=== PATIENT | male | born 1945 | race Caucasian/White ===

== ENCOUNTER 2016-08-10 15:23 | Observation (INO) | payer MEDICARE, BC ==
[~2016-08-10] VITALS: Ht 177.8 cm; Wt 84.0 kg
--- NOTE | ~2016-08-10 | ECHO ---
Transthoracic Echocardiography Report (TTE) Demographics Patient Name JASS HERMAN Date of Study 08/11/2016 Patient Number [id number] Visit Number [id number] Date of 1945 Room Number G6315 Gender Male Number Age 71 year(s) Referring Nitish Donahue [employer] [facility] Manager Yumiko Reeder, Physician RT,RVT,RDCS Physician Interpreting Tone Ojeda A Suppository Molding Machine Operator Physician MD Supervising Ordering Nitish Donahue BANDAGE WINDING MACHINE OPERATOR MD/MLP Physician Nurse Stress Legal Counsel Conclusions Contractility Score Summary Summary The estimated left ventricular ejection fraction is 50-55%. Mild concentric left ventricular hypertrophy. Mild anterior hypokinesis. Diastolic assessment reveals Grade II pseudonormal diastolic function. . Mildly dilated right ventricle. Mild to moderately reduced right ventricular function. Mild mitral regurgitation by color Doppler. Mild tricuspid regurgitation by color Doppler. Procedure Type of Study TTE procedure:2D Echocardiogram, M-Mode, Doppler , Color Doppler. Procedure Date Date: 08/11/2016 Start: 08:59 AM Study Location: Inpatient Portable Technical Quality: Good visualization Indications:Syncope. Appropriate Use Criteria: 9 Patient Status: Routine HR: 54 bpm BP: 125/75 mmHg Allergies - Other. - Other:(Indocin). M-Mode/2D Measurements LV Diastolic Dimension: 5.12 cm LV Systolic Dimension: 2.38 cm LV Septum Diastolic: 0.89 cm LV Septum Systolic: 1.13 cm LV PW Diastolic: 1.09 cm LV PW Systolic: 1.94 cm Cardiac Output: 4.23 l/min AO Root Dimension: 3.8 cm RV Diastolic Dimension: 3.33 cm LA Dimension: 3.7 cm EF Estimated: 60 % LA volume: 44 ml LVOT: 2.2 cm LVOT VTI: 20.6 cm LV Stroke volume: 78.27 ml Doppler Measurements AV Peak Velocity: 1.38 m/s MV Peak E-Wave: 0.86 m/s AV Peak Gradient: 7.62 mmHg MV Peak A-Wave: 0.74 m/s AV Mean Gradient: 4 mmHg MV E/A Ratio: 1.17 LVOT Peak Velocity: 0.9 m/s MV P1/2t: 57 msec TR Gradient:7.4 mmHg Estimated RAP:10 mmHg Estimated PASP: 17.4 mmHg Estimated RVSP: 17 mmHg A' Septal Velocity: 0.09 m/s E' Septal Velocity: 0.08 m/s MV E/E' Ratio: 10.9 Findings Left Ventricle Mild concentric left ventricular hypertrophy. Mild anterior hypokinesis. Diastolic assessment reveals Grade II pseudonormal diastolic function. . Right Ventricle Mildly dilated right ventricle. Mild to moderately reduced right ventricular function. Left Atrium Normal left atrial size. Right Atrium Upper normal right atrial size. Mitral Valve Mild mitral regurgitation by color Doppler. Aortic Valve Normal aortic valve structure and function. Tricuspid Valve Mild tricuspid regurgitation by color Doppler. Pericardial Effusion No evidence of pericardial effusion. Miscellaneous Visualized portions of the aortic root and ascending aorta appear normal in size. IVC is mildly dilated. Blunted response to sniffing. Pleural Effusion No evidence of pleural effusion. Signature dtt: aJiden Wayne dtd: 08/11/16 0859 Physician Self Edit
--- NOTE | ~2016-08-10 | HP ---
PATIENT'S NAME: SHELTON FROST [facility] AGE: 71 Y [address] ROOM: G6315 [place], [place] [address] LOCATION: GPCU ADMIT DATE: 08/10/2016 History & Physical DISCHARGE DATE: FAMILY PHYSICIAN: JEAN BROWN MD ATTENDING PHYSICIAN: JEAN BROWN DATE OF SERVICE: CHIEF COMPLAINT: Dizzy spell. 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 He went to the house, took 1 sublingual nitroglycerin, not so much that he had pain, but thought maybe it was a heart issue, did not feel well and was brought into the hospital for evaluation. He was seen here by Mahi Lizarraga, ER physician, and I was called because I am the patient's primary care physician. Here, a CT of the head per Dr. Lizarraga was negative. Chest x- ray is negative. When I review, his CBC and chem panel look fine. His magnesium slightly low at 1.2. His potassium slightly low at 3.5. Cardiac enzymes are negative. He has developed no chest pain here in the emergency room. When I see him, he is resting quietly in bed, said he feels fine. He is not complaining of slurred speech, visual changes, or weakness in his arms or legs. He does not complain of reflux, nausea, vomiting, or diarrhea. 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 He does have cardiac risk factors as previously known coronary artery disease, hypertension, he is not diabetic, does not smoke. Family history of coronary disease noted positive. At this point, the goal is to admit him to the hospital overnight. I have consulted Dr. Almendarez, spare person at [facility] to see him. Adjust his med list. We will put him in the hospital bed rest on telemetry, get repeat cardiac enzymes at 8 o'clock, get a Cardiology consult, add a potassium supplement and magnesium supplement,and re-evaluate in the morning. We will resume his prior home medications which I reviewed and wrote down in the chart. CURRENT MEDICATIONS: 1. Flovent 220 two puffs b.i.d. 2. Protonix 40 mg a day. 3. Nadolol 10 mg daily. 4. Lisinopril 2.5 mg a day. 5. Alfuzosin 10 mg q.h.s. PATIENT'S NAME: SHELTON FROST [facility] AGE: 71 Y [address] ROOM: [place] [address] LOCATION: GPCU ADMIT DATE: 08/10/2016 History & Physical DISCHARGE DATE: FAMILY PHYSICIAN: JEAN BROWN MD ATTENDING PHYSICIAN: JEAN BROWN 6. Atorvastatin 40 mg a day. 7. Multivitamin. 8. Vitamin E. 9. Calcium with vitamin D daily. 10. Aspirin 81 mg a day. ALLERGIES TO MEDICATIONS: See nurse's notes. PREVIOUS OPERATIONS: See old records. SOCIAL HISTORY: Does not smoke. FAMILY HISTORY: As mentioned, otherwise noncontributory. IMMUNIZATIONS: Up-to-date for age. REVIEW OF SYSTEMS: Positive for asthma, coronary artery disease, hypertension, chronic GERD, and BPH. PHYSICAL EXAMINATION: VITAL SIGNS: Per nurse's notes. GENERAL: He is alert male, lying in the cart, in no apparent distress. Oriented to person, place, and time. HEENT: He wears glasses. Pupils react to light. Funduscopic exam, not done. TMs not visualized. Posterior pharynx clear. Mucous membranes are moist. NECK: Unremarkable. Thyroid enlarged. I did not listen for bruits. LUNGS: Clear without wheeze or rub. HEART: No murmur, gallop, or rub. ABDOMEN: Soft without point tenderness. PELVIC: Not done. RECTAL: Not done. EXTREMITIES: No edema. Pulses full throughout. NEURO: Cranial nerves are intact. No lateralizing signs. Mental status normal for age. IMPRESSION: 1. Dizzy spell, etiology undetermined. 2. Known history of coronary artery disease. 3. Hypertension, essential. PATIENT'S NAME: SHELTON FROST [facility] AGE: 71 Y [address] ROOM: [place] [address] LOCATION: GPCU ADMIT DATE: 08/10/2016 History & Physical DISCHARGE DATE: FAMILY PHYSICIAN: JEAN BROWN MD ATTENDING PHYSICIAN: JEAN BROWN 4. Asthma. 5. Chronic gastroesophageal reflux disease. 6. Hyperlipidemia. 7. Benign prostatic hypertrophy. PLAN: Observation tonight. Cardiology consult. Replace potassium and magnesium and see how we do. MD CASSY VÁZQUEZ/modl /[id number] D: [id number] T: [id number] HISTORY & PHYSICAL
--- NOTE | ~2016-08-10 | DS ---
PATIENT'S NAME: JASS HERMAN [facility] AGE: 71 Y [address] ROOM: [address] [address] LOCATION: GPCU ADMIT DATE: 08/10/2016 Discharge Summary DISCHARGE DATE: 08/11/2016 FAMILY PHYSICIAN: Jean Brown MD ATTENDING PHYSICIAN: Jean Brown FINAL DIAGNOSES: 1. Chest pain, noncardiac. 2. Gastroesophageal reflux, chronic. 3. Asthma. 4. Hypertension, essential. 5. Known coronary artery disease. PRIMARY DIAGNOSIS: Dizziness. HOSPITAL COURSE: This patient was admitted to the hospital for the above. Primary symptoms were dizziness. He was seen in the emergency room and evaluated there. His evaluation there showed a normal CT of the head, essentially normal labs, no evolutionary changes of CT were noted, and no EKGs changes evolved. He was seen in consultation by the [facility] Cardiology team. Please see their notes and dictations on the chart. The patient's echocardiogram done prior to dismissal revealed no evidence of ischemia and a normal ejection fraction. After admission, the patient had no further spells of dizziness and developed no chest pain. He was dismissed home on 08/11/2016 in the evening. He goes out with my recommendations to see me back in the office in a week, double his PPI Protonix to twice a day, and continue his other home medications. He is dismissed on the med list shown. He should have a 2 g salt diet, I suspect. He is to see me back earlier if he has another spell of dizziness, lightheadedness, or chest pain, he understands. JEAN BROWN MD STOCK PITCHER/modl /[id number] d: 08/12/16 0125 t: 08/14/16 1444, DISCHARGE SUMMARY
--- NOTE | ~2016-08-10 | ER ---
PATIENT'S NAME: JASS HERMAN [facility] AGE: 71 Y [address] ROOM: [place] [address] LOCATION: GPCU ADMIT DATE: 08/10/2016 ER/Outpatient Report DISCHARGE DATE: FAMILY PHYSICIAN: JEAN COLUNGA MD ATTENDING PHYSICIAN: JEAN COLUNGA Time of Arrival: 1523 hours. Time Seen: 1544 hours. IDENTIFICATION: A 71-year-old male. CHIEF COMPLAINT: Lightheadedness. HISTORY OF PRESENT ILLNESS: The patient was out closing a gate when he felt sweaty, had some spots in his vision, felt lightheaded, had to hang on to the gate, as he felt he was going to pass out. It was not a spinning sensation. He had a little bit of chest discomfort during that time and some shortness of breath. He went into the house, took a sublingual nitroglycerin, and his symptoms improved. His said that he was very pale during that time. The patient does have a history of coronary artery disease with previous CABG and stents. Last stents were in [address] 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 ALLERGIES: INDOCIN, HE IS NOT CERTAIN WHAT HAPPENS WITH THAT. CURRENT MEDICATIONS: 1. Flovent 220 mcg 2 puffs b.i.d. 2. Pantoprazole 40 mg daily. 3. Nadolol 10 mg q.a.m. 4. Lisinopril 2.5 mg q.a.m. 5. Alfuzosin 10 mg at h.s. 6. Atorvastatin 40 mg at h.s. 7. Multivitamin daily. 8. Vitamin E. 9. Calcium plus vitamin D. 10. Aspirin 81 mg daily. MEDICAL PROBLEMS: Coronary artery disease, status post previous CABG in 2010, stents in 2012, hyperlipidemia, gastroesophageal reflux disease, hypertension, headaches, and asthma. [facility]GE[facility] 71 Y [address] ROOM: [place] [address] LOCATION: GPCU ADMIT DATE: 08/10/2016 ER/Outpatient Report DISCHARGE DATE: FAMILY PHYSICIAN: JEAN COLUNGA MD ATTENDING PHYSICIAN: JEAN COLUNGA PRIOR SURGERIES: CABG and cardiac stents. FAMILY HISTORY: No family history of premature coronary artery disease. SOCIAL HISTORY: The patient is . Lives with his in [place]. Tobacco use, denies. Alcohol use, denies. Drug use, denies. REVIEW OF SYSTEMS: All systems reviewed and negative other than what is noted in the HPI. PHYSICAL EXAMINATION: VITAL SIGNS: Weight 84 kg, blood pressure 131/62, pulse 81, respirations 20, temperature 97.1, and saturations are 94% on room air. GENERAL: A 71-year-old male who is completely asymptomatic at this time in no acute distress. HEENT: Head: Normocephalic, atraumatic. Ears: TMs are translucent both ears. Eyes: Pupils are equal and reactive to light and accommodation. Extraocular movements intact. Nose: Mucosa pink. No lesions. Mouth: No lesions. Pharynx benign. NECK: Supple. No lymphadenopathy. LUNGS: Clear to auscultation. HEART: Regular rate and rhythm. No murmur, rub, or gallop. ABDOMEN: Bowel sounds are present. Soft, nondistended. No hepatosplenomegaly, no palpable masses, or nontender. SKIN: [place], warm, and dry. No lesions or rashes noted. NEURO: The patient is alert and oriented x4. Cranial nerves 2 through 12 grossly intact. Motor strength 5/5 throughout. Sensation was intact to light touch. EXTREMITIES: No lower extremity edema, no calf tenderness. LABORATORY DATA: Chest x-ray, no acute process, pending Radiology over-read. Head CT negative per Radiology. EKG: Normal sinus rhythm at 63 beats per minute, first-degree AV block. No acute ST elevation or depression. Incomplete right bundle- branch block. Sodium 143, potassium 3.5, chloride 109, CO2 24, BUN 14, creatinine 0.8, blood sugar 125, magnesium level 1.2. Liver enzymes are normal. CPK 92, CK-MB 1.6. Troponin I less than 0.040. ProBNP 88, hemoglobin 14.2, hematocrit 40.9, platelets 183, white count 7.9. Normal differential. INR 0.99. IMPRESSION: 1. Near syncope. PATIENT'S NAME: JASS HERMAN [facility] AGE: 71 Y [address] ROOM: [place] [address] [facility] AD[facility] DATE: 08/10/2016 ER/Outpatient Report DISCHARGE DATE: FAMILY PHYSICIAN: JEAN COLUNGA MD ATTENDING PHYSICIAN: JEAN COLUNGA 2. Chest discomfort in the patient with known coronary artery disease. 3. Mild hypokalemia. 4. Hypomagnesemia. PLAN: For admission per Dr. Colunga, 24-hour observation for serial EKG and enzymes with Cardiology consultation. The patient and his understand and agree, and all questions have been answered and Dr. Colunga evaluated the patient in the emergency room. RAY BANERJEE MD CAR/modl /[id number] d: 08/11/16 0138 t: 08/11/16 0650, OUTPATIENT REPORT
--- NOTE | ~2016-08-10 | ESTC ---
Cardiac Perfusion Imaging Demographics Patient Name VIRGIL Westbrook Gender Male Patient Number [id number] Race Visit Number [id number] [place] [id number] Room Number G6315 Accession Number [id number] Height 70 inches Date of 1945 Weight 185 pounds Afua BEYER Interpreting Carol Almendarez Date of study 08/11/2016 Physician MD Supervising /BRYANP Nitish KATZ Technologist Dewey Morley Ordering Physician Tone Caal MD magnetic testing technician Stress ECG Reading Nitish Leos APRN Nurse Propfrantz Dennison RN Physician Procedure Procedure Type: Nuclear Stress Test:Pharmacological, Lexiscan, Cardiolite Stress Test Procedure Start time: 08/11/2016 11:00 Indications: Syncopal Episode. Risk Factors The patient risk factors include:prior PCI on 03/27/2013;prior CABG;former tobacco use, treated hypercholesterolemia, treated hypertension and dyslipidemia. Conclusions Summary Perfusion Images: The overall quality of the study is poor, due to gastrointestinal tracer uptake. Left ventricular cavity is noted to be normal on the stress and normal on the rest images. There is no evidence of abnormal lung activity. The right ventricle is not visualized an cannot be assessed. Impression ECG portion of lexiscan stress test is clinically negative for ischemia by diagnostic criteria. Technically difficult study. Myocardial perfusion imaging does not show any perfusion defects suggestive of ischemia/infarct. Overall left ventricular systolic function was normal without regional wall motion abnormalities. Calculated LVEF is 62% and TID ratio is 0.95. Clinical correlation recommended. Stress Protocols Resting ECG Sinus ivonne with 1st degree AVB Pre-stress physical exam: Patient assessed by Meena JEAN prior to testing. Predicted HR: 147 bpm HR response: Appropriate BP response: Appropriate Reason for termination:Infusion complete ECG Findings No ECG changes suggestive of ischemia. Arrhythmias No rhythm abnormality. Symptoms Shortness of breath. Complications Procedure complication: None. Stress Interpretation Appropriate hemodynamic response to Lexiscan. No significant ST-T wave changes with Lexiscan. ECG portion is negative for ischemia by diagnostic criteria. Will correlate with nuclear images. Imaging Results Summed scores - Summed stress score: 11 - Summed rest score: 11 - Summed difference score: 0 Stress ejection Ejection fraction:60 % EDV :131 ml ESV :53 ml Stroke volume :78 ml LV mass :149 gr Imaging Protocols Rest Stress Isotope:Tc99m Sestamibi IV Isotope: Tc99m Sestamibi IV Isotope dose:12.1 mCi Isotope dose:38.5 mCi Date:08/11/2016 09:37 Date:08/11/2016 11:00 Technique: SPECT Technique: Gated Supine SPECT Supine IV remains in place after procedure. Scan Time:45-60 minutes post Scan Time:45-60 minutes post injection injection Procedure Medications - Regadenoson (Lexiscan) 0.4 mg IV over 10-15 sec. I.V. 0.4 mg. Medical History Admission Data Admission date: 08/10/2016 Admission Time: 17:37 Hospital Status: Inpatient. Signatures dtt: DYLON TAYLOR dtd: 08/11/16 1100 Physician Self Edit
--- NOTE | ~2016-08-10 | CON ---
PATIENT'S NAME: JASS HERMAN [facility] AGE: 71 Y [address] ROOM: G6315 [place], [place] [address] LOCATION: GPCU ADMIT DATE: 08/10/2016 Consultation DISCHARGE DATE: FAMILY PHYSICIAN: JEAN BROWN MD ATTENDING PHYSICIAN: JEAN BROWN DATE OF CONSULTATION: 08/11/2016 REFERRING PHYSICIAN: Jaiden Wayne MD REASON FOR CARDIOLOGY CONSULT: Dizziness in the setting of known coronary artery disease. HISTORY OF PRESENT ILLNESS: This is a 71-year-old male, familiar to [facility]. He was last seen in May of 2016. 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 He did take one sublingual nitroglycerin and after that began to feel even worse. He had no complaints of chest pain, shortness of breath, dyspnea on exertion, palpitations, nausea, or vomiting, but did present to the Emergency Department for evaluation due to the continued dizziness and lightheadedness. His past medical history includes coronary artery disease with coronary artery bypass grafting in 2010 x5 vessels. He then had subsequent coronary artery stenting in 2013 to the proximal circumflex. He has past stenting to his distal left main and diagonal 2 in 2011. He did undergo a Lexiscan stress test in March 2015 and had an ejection fraction of 61% with diaphragm attenuation noted. His other history includes hypertension, hyperlipidemia, and GERD. The only difference the patient is able to elicit over the last month in health practices is that his insurance has changed his dosing of GERD medication, and since then, he has had more complaints of heartburn type symptoms, but overall he states he feels fine and has no complaints at this time. PAST MEDICAL HISTORY: As listed in the HPI as well as BPH, migraines, history of a paralyzed left hemidiaphragm, and history of kidney stones. PAST SURGICAL HISTORY: 1. Tonsillectomy. 2. Adenoidectomy. 3. Right foot toe surgery. 4. EGD with biopsies. 5. Hemorrhoidectomy. FAMILY HISTORY: There is noted familial heart disease noted in his father, mother, sister, and brother. His brother and father had myocardial infarctions and his mother and PATIENT'S NAME: JASS HERMAN [facility] AGE: 71 Y [address] ROOM: G6315 [place], [place] [address] [facility] AD[facility] DATE: 08/10/2016 Consultation DISCHARGE DATE: FAMILY PHYSICIAN: JEAN BROWN MD ATTENDING PHYSICIAN: JENA BROWN sister both have heart disease. SOCIAL HISTORY: The patient is a former cigarette smoker. He smoked cigars for a total of 5 years and quit smoking in 1970s. He denies alcohol or illicit drug use. CURRENT MEDICATIONS: 1. Asmanex 2 puffs inhaled twice daily. 2. Aspirin 81 mg p.o. daily. 3. Corgard 10 mg p.o. daily. 4. Potassium chloride 20 mEq p.o. daily. 5. Lipitor 40 mg p.o. daily. 6. Magnesium oxide 400 mg p.o. daily. 7. Prinivil 2.5 mg p.o. daily. 8. Protonix 40 mg p.o. daily. 9. Uroxatral 10 mg p.o. daily. MEDICATION ALLERGIES: Include Indocin and Levaquin. REVIEW OF SYSTEMS: Pertinent positive review of systems listed in the HPI. All other review of systems evaluated and negative. DIAGNOSTICS DATA: CMS evaluation shows sodium of 142, potassium 3.6, BUN of 13, creatinine 0.7, glucose of 139. He has a magnesium of 1.3. Cardiac enzyme evaluation shows a CPK of 73, CK-MB of 1.5, and troponin I of less than 0.04. Lipid evaluation shows a total cholesterol of 129, triglycerides 114, HDL of 47, and LDL of 60. He has a TSH of 0.941. PHYSICAL EXAMINATION: VITAL SIGNS: Temperature 97.8, pulse 61, respirations 14, blood pressure 125/75, O2 saturation 95% on room air. The patient weighs 84 kg. SKIN: [place], warm, and dry. EYES: Sclerae are clear. No xanthelasma. ENT: Oral mucosa is pink and moist. NECK: No jugular venous distention or carotid bruits. CHEST: Respirations are even and unlabored. LUNGS: Clear to auscultation. HEART: Regular rate and rhythm. Normal S1, S2. No murmurs, rubs, or gallops. ABDOMEN: Soft and nontender. MUSCULOSKELETAL: Gait is normal. EXTREMITIES: Peripheral pulses palpable. No clubbing, cyanosis, or edema. PATIENT'S NAME: JASS HERMAN [facility] AGE: 71 Y [address] ROOM: G6315 [place] [address] [facility] AD[facility] DATE: 08/10/2016 Consultation DISCHARGE DATE: FAMILY PHYSICIAN: JEAN BROWN MD ATTENDING PHYSICIAN: JEAN BROWN PSYCHIATRIC: Alert and oriented. Mood and affect are appropriate. IMPRESSION AND PLAN: Per Dr. Wayne: 1. Lightheadedness and dizziness with no acute signs and symptoms of acute coronary syndrome. His EKG is stable for acute ST changes and he does have an underlying first-degree AV block, which is stable as compared to his last EKG. We will check an echocardiogram to fully evaluate ejection fraction as well as look for wall motion valvular abnormalities. 2. Coronary artery disease with a history of coronary artery bypass graft and stents. Once again, no angina and he is on chronic cardiovascular medication with aspirin, beta-vito, statin, and CHRIS inhibitor. 3. Gastroesophageal reflux disease with recent changes to his medications. These symptoms could be anginal equivalent and with history of stenting and coronary artery bypass graft, we will plan to proceed with a Lexiscan stress test to fully evaluate myocardial perfusion imaging. We will continue to monitor, evaluate, and treat as appropriate. Thank you for this consult. Thank you for allowing [facility] to interact in the care of the patient. ELEN ALBERT APRN FOR MD JOSELYN BEEBE/modl /[id number] d: 08/11/161908 t: 08/19/161823, CONSULTATION REPORT
[~2016-08-10 15:23] MED LIST: ALFUZOSIN HCL E10 MG PO; ASPERCREME90 GM/TUBE TOP; ASPIR 8181 MG PO; CALCIUM 600 +1 EAC6 PO; CORGARD20 MG PO; DAILY MULTIPLE1 EAC1 PO; FLOVENT 220 M220 MCG INH; LIPITOR40 MG PO; OSCAL + D500 MG PO; PERCOCET 10-321 EACH PO; PLAVIX75 MG PO; PROTONIX40 MG PO; SUNSCREEN SPF8120 ML TOP; TYLENOL ARTHRI650 MG PO; VALIUM5 MG PO; VITAMIN E400 UNI1 PO; ZESTRIL2.5 MG PO
[2016-08-10 16:12] LABS: BASOPHIL % 0.5 %; EOSINOPHIL # 0.1 K/uL (0.0-0.5); HEMATOCRIT 40.9 % (37.0-53.0); HEMOGLOBIN 14.2 g/dL (11.0-16.0); IMMATURE GRANULOCYTE % 0.5 %; LYMPHOCYTE # 1.3 K/uL (0.8-4.0); LYMPHOCYTE % 16.6 %; MCH 29.8 pg (27.0-34.0); MCHC 34.7 gm/dL (32.0-36.5); MCV 85.7 fl (83.0-98.0); MONOCYTE # 0.9 K/uL (0.0-1.0); MONOCYTE % 10.9 %; MPV 9.7 fl (9.4-12.4); NEUTROPHIL # (ANC) 5.6 K/uL (1.4-9.0); NEUTROPHIL % 70.5 %; NRBC % 0 /100WBC (0-0.00); PLATELET COUNT 183 K/uL (150-450); RBC 4.77 M/uL (3.50-5.50); RDW-CV 12.2 % (11.9-14.6); WBC 7.9 K/uL (4.0-11.0)
[2016-08-10 16:30] LABS: INR - (THERAPEUTIC) 0.99 (0.92-1.07); PROTIME 10.4 SECONDS (9.8-11.4); PTT 27 SECONDS (25-32)
[2016-08-10 16:43] LABS: ALBUMIN 3.5 gm/dL (3.5-5.0); ALK PHOS 47 IU/L (33-138); ALT 27 IU/L (12-78); ANION GAP 13.5 (10.0-19.0); AST 22 IU/L (10-40); BLOOD UREA NITROGEN 14 mg/dL (6-24); CHLORIDE 109 mMol/L (96-110); CO2 24 mMol/L (22-32); CPK 92 IU/L (35-332); CREATININE 0.8 mg/dL (0.6-1.3); ESTIMATED GFR (MDRD EQUATION) > 60; POTASSIUM 3.5 mMol/L (3.7-5.1); SODIUM 143 mMol/L (135-145); TOTAL BILIRUBIN 0.5 mg/dL (0.0-1.5); TOTAL PROTEIN 6.1 g/dL (6.0-8.4)
[2016-08-10 16:47] LABS: MAGNESIUM 1.2 mg/dL (1.8-2.6)
[2016-08-10] MEDS ORDERED: KEFLEX500 MG PO (19:51)
[2016-08-10 21:00] LABS: CPK 85 IU/L (35-332)
[2016-08-11 08:29] LABS: ANION GAP 12.6 (10.0-19.0); BLOOD UREA NITROGEN 13 mg/dL (6-24); CALCIUM 8.5 mg/dL (8.5-10.5); CHLORIDE 109 mMol/L (96-110); CO2 24 mMol/L (22-32); CPK 73 IU/L (35-332); CREATININE 0.7 mg/dL (0.6-1.3); ESTIMATED GFR (MDRD EQUATION) > 60; MAGNESIUM 1.3 mg/dL (1.8-2.6); POTASSIUM 3.6 mMol/L (3.7-5.1); SODIUM 142 mMol/L (135-145)
[2016-08-11] MEDS ORDERED: K-TAB 10MEQ10 MEQ PO (18:28)
== END 2016-08-11 19:15 | disposition disaster alternative care site (69) ==
LOC: GMED 15:23 → GPCU 17:37
PROVIDERS: Family Medicine; Nurse Practitioner; ADMIT Family Medicine
DX: R42 Dizziness and giddiness (principal); I25.10 Atherosclerotic heart disease of native coronary artery without angina pectoris; R07.89 Other chest pain; I10 Essential (primary) hypertension; K21.9 Gastro-esophageal reflux disease without esophagitis; J45.909 Unspecified asthma, uncomplicated; E78.5 Hyperlipidemia, unspecified; N40.0 Benign prostatic hyperplasia without lower urinary tract symptoms; E87.6 Hypokalemia; E83.42 Hypomagnesemia; G43.909 Migraine, unspecified, not intractable, without status migrainosus; Z87.891 Personal history of nicotine dependence; Z88.8 Allergy status to other drugs, medicaments and biological substances; Z98.890 Other specified postprocedural states; Z79.82 Long term (current) use of aspirin; Z79.899 Other long term (current) drug therapy
CPT/HCPCS: A9500; G0378; J0280; J2785

== ENCOUNTER → 2016-11-11 | Outpatient (CLI) | payer MEDICARE, BC ==
[~2016-11-11] MED LIST changes: +K-TAB 10MEQ10 MEQ PO; +KEFLEX500 MG PO
== END | disposition disaster alternative care site (69) ==
LOC: GRAD 10:51
DX: M79.601 Pain in right arm (principal); M47.892 Other spondylosis, cervical region; M48.02 Spinal stenosis, cervical region